=== PATIENT | male | born 1955 | race Caucasian/White ===

== ENCOUNTER 2021-09-14 08:47 | Day surgery (SDC) | payer MEDICAID, OTHER ==
[~2021-09-14 08:47] MED LIST: Metoclopramide 10 MG/2 ML SDV IV PRN; Sodium Chloride 0.9% 1,000 ML IV SCH
[2021-09-14] MEDS ORDERED: Propofol 1,000 MG/100 ML SDV ONE (10:40)
--- NOTE | 2021-09-14 12:14 | OR ---
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 PROCEDURE: EGD with biopsy and colonoscopy. ANESTHESIA: MAC. ESTIMATED BLOOD LOSS: Minimal. COMPLICATIONS: None. INDICATION FOR THE PROCEDURE: The patient is a 66-year-old male, here today for EGD and colonoscopy. Last scopes were approximately 8 years ago and per reports normal colonoscopy, EGD showing Culp's esophagus. He is here today for EGD and colonoscopy. DESCRIPTION OF PROCEDURE: Informed consent was obtained with the patient. The patient was taken to the operating room, placed on the table in the left lateral decubitus position. Monitored anesthesia care was administered. Esophagogastroscope was advanced through the oral cavity, directed towards the duodenum. Duodenum was reached and second portion of the duodenum was reached, slowly backed out. Duodenum was normal. Gastric antrum was normal. Retroflexion performed, which was also normal. The distal esophagus showing some salmon- colored mucosa. Four-quadrant biopsies taken. Some minimal bleeding. Esophagogastroscope then withdrawn. I then turned our attention to the colon. Digital rectal exam performed and was normal. Colonoscope then advanced through the anus directed towards the cecum. Cecum was reached and identified by appendiceal orifice and ileocecal valve. Colonoscope was then slowly withdrawn. No masses, no cancer, no areas of ischemia or inflammation identified. Rectum was also otherwise unremarkable. Colonoscope was then slowly withdrawn. FINDINGS: [place]-colored mucosa consistent with Culp's esophagus and otherwise normal colon. RECOMMENDATIONS: We will follow up on Culp's biopsies. Would recommend repeat surveillance EGD in 3 years. Would recommend repeat screening colonoscopy in 10 years. RAQUEL/ENE /[id number]
== END 2021-09-14 11:50 | disposition home or self-care (01) ==
LOC: LB.SDS 08:47
PROVIDERS: ATTEND Surgery
DX: Z12.11 Encounter for screening for malignant neoplasm of colon (principal); K22.70 Barrett's esophagus without dysplasia; E11.9 Type 2 diabetes mellitus without complications; F17.200 Nicotine dependence, unspecified, uncomplicated; E78.5 Hyperlipidemia, unspecified; Z79.84 Long term (current) use of oral hypoglycemic drugs; Z79.899 Other long term (current) drug therapy
CPT/HCPCS: 43239; 45378; 82947; J2704; J7030

== ENCOUNTER 2024-11-12 07:29 | Day surgery (SDC) | payer OTHER, MEDICARE ==
[2024-11-12] MEDS: Sodium Chloride 0.9% 1,000 ML IV SCH (07:39)
[2024-11-12] MEDS ORDERED: Propofol 200 MG/20 ML SDV ONE (08:20)
== END 2024-11-12 09:25 | disposition home or self-care (01) ==
LOC: LB.SDS 07:29
PROVIDERS: ATTEND Surgery
DX: K22.70 Barrett's esophagus without dysplasia (principal)
CPT/HCPCS: 82947; 88305; J2704; J7030